=== PATIENT | male | born 1995 | race Caucasian/White ===

== ENCOUNTER 2020-01-10 18:13 | Emergency (ER) | payer OTHER, SELFPAY ==
[2020-01-10 18:17] VITALS: BP 124/85; PULSE 97; RESP 18; TEMP 36.1; O2SAT 100
[2020-01-10 18:40] VITALS: BP 135/79; PULSE 85; RESP 20; O2SAT 79
--- NOTE | 2020-01-10 18:52 | ED.UPPEXIN ---
HPI - Extremity Injury (Upper) General Chief Complaint: Extremity Injury, Upper Stated Complaint: right arm chain saw laceration Time Seen by Provider: 01/10/20 18:32 History of Present Illness HPI narrative: He was cutting down a tree when the saw jumped and he he cut his right forearm. He has severe pain. Worse with making a fist or extending the wrist. Moderate bleeding, controlled with dressing. Movement intact. No numbness. Related Data Allergies Allergy/AdvReac Type Severity Reaction Status Date / Time tramadol Allergy Intermediate Muscle Verified 01/10/20 18:40 Spasms Review of Systems Review of Systems: All systems reviewed & are unremarkable except as noted in HPI and below Constitutional: Constitutional: Denies fever(s) Cardiovascular: Cardiovascular: Denies chest pain Hematologic/Lymphatic: Hematologic/Lymphatic: Denies easy bleeding and Denies easy bruising PMFSH Social History Social History (Updated 01/18/20 @ 17:52 by Ilya Davies MD) Smoking status: Current every day smoker Alcohol intake: former Gender identity (if verbalized by the patient): Male Exam Const: General: healthy appearing, no acute distress and alert Orientation/consciousness: patient oriented x3 HENMT: Head: normal to inspection Resp: Effort & Inspection: normal respiratory effort Auscultation: clear to auscultation bilaterally Cardio: Rate: regular rate Rhythm: regular rhythm Other: 2 + right radial pulse. Brisk capillary refill in all digits Skin: Wounds: wounds noted (8 cm lac to right forearm w/ partial laceration of multiple extensor muscle) Neuro: General: patient oriented x3, no focal motor deficits and CN's II-XI intact bilaterally Speech: normal speech Other: Motor and sensory fully intact to Right hand and forearm Course Vital Signs Vital signs: Vital Signs Temperature 36.1 C L 01/10/20 18:17 Pulse Rate 97 01/10/20 18:17 Respiratory Rate 18 01/10/20 18:17 Blood Pressure 124/85 01/10/20 18:17 Pulse Oximetry 100 01/10/20 18:17 Temperature 36.9 C 01/10/20 20:21 Pulse Rate 84 01/10/20 20:21 Respiratory Rate 18 01/10/20 20:21 Blood Pressure 121/86 01/10/20 20:21 Pulse Oximetry 98 01/10/20 20:21 Procedures Laceration Laceration 1: Site: upper extremity Side (If applicable): right (forearm) Local Anesthetic: lidocaine 1% and with epi Amount of anesthesia used (mL): 25 Pre-repair: wound explored and irrigated extensively ====== Skin Level ====== Skin layer closed with: nylon Size (cm): 4-0 Number of sutures: 11 Technique: simple, interrupted ====== Subcutaneous Layer ====== Subcutaneous layer closed with: vicryl Size: 4-0 Number of sutures: 7 Technique: simple, interrupted ====== Muscle Layer ====== Muscle layer closed with: vicryl Size: 4-0 Number of sutures: 4 Technique: other (figure 8) ====== Tendon Layer ====== MDM - Extremity Injury (Upper) MDM Narrative Medical decision making narrative: Laceration repaired. Neuro intact before and after procedure. Advised to get and use wrist splint while not sleeping. He expressed understanding. Discharge Plan Discharge Clinical Impression: Contact with chainsaw as cause of accidental injury, Laceration of forearm Patient Disposition: Home, Self-Care Condition: Stable Instructions: Antibiotic Form, Laceration (ED) Prescriptions: New cephalexin [Keflex] 500 mg capsule 500 mg PO Q12H Qty: 10 RF: 0 hydrocodone-acetaminophen [[place]] 5-325 mg tablet 1 tablet PO Q6H PRN (Reason: pain) Qty: 10 RF: 0 Follow-up/Referrals: PHYSICIAN,SPECIAL DELIVERY MESSENGER [Primary Care Provider] - Discharge Date/Time: 01/10/20 20:22
[2020-01-10] MEDS: CEPHALEXIN 500 MG CAPSULE PO (18:55)
[2020-01-10 20:21] VITALS: BP 121/86; PULSE 84; RESP 18; TEMP 36.9; O2SAT 98
== END 2020-01-10 20:22 | disposition home or self-care (01) ==
PROVIDERS: Emergency Provider Emergency Medicine
DX: S56.521A Laceration of other extensor muscle, fascia and tendon at forearm level, right arm, initial encounter (principal); S51.811A Laceration without foreign body of right forearm, initial encounter; W29.3XXA Contact with powered garden and outdoor hand tools and machinery, initial encounter; F17.200 Nicotine dependence, unspecified, uncomplicated
CPT/HCPCS: 12032; 13121; 13122; 99283; A9270

== ENCOUNTER 2020-11-07 03:26 | Emergency (ER) | payer OTHER, SELFPAY ==
--- NOTE | ~2020-11-07 | XR_ITS ---
EXAMINATION: XR chest 2V 11/07/2020 04:03 INDICATION: Shortness of breath PROCEDURE: PA and lateral views of the chest COMPARISON: 02/13/2018 FINDINGS: The lungs are clear. The cardiomediastinal silhouette is within normal limits. There are no pleural effusions. There is no pneumothorax suspected. IMPRESSION: 1: NO ACUTE CARDIOPULMONARY DISEASE. Reviewed, dictated and finalized at location A.
--- NOTE | 2020-11-07 03:33 | PC.NURSE ---
After placing a wrist band on patient, he stated I'll be right back and walked outside.
--- NOTE | 2020-11-07 03:44 | ED.SOB ---
HPI - SOB/Dyspnea General Chief Complaint: Shortness of Breath/Dyspnea Stated Complaint: SOB, worse with exertion Time Seen by Provider: 11/07/20 03:43 History of Present Illness HPI Narrative: He reports that for darby time he has frequent SOB. He says that at times it is so severe that he loses consciousness. He tells us that he is a [facility]ateint of [facility] where he has been receiving radiation therapy for a noncancerous lung mass. Upon contacting [facility] I was informed that they have no record of him every being a patient there. He was seen here a few months ago for pneumonia. Related Data Allergies Allergy/AdvReac Type Severity Reaction Status Date / Time tramadol Allergy Intermediate Muscle Verified 01/10/20 18:40 Spasms Review of Systems Review of Systems: All systems reviewed & are unremarkable except as noted in HPI and below [facility] Social History Social History (Updated 01/18/20 @ 17:52 by Ilya Davies MD) Smoking status: Current every day smoker Alcohol intake: former Gender identity (if verbalized by the patient): Male Exam Const: General: healthy appearing, no acute distress and alert Orientation/consciousness: patient oriented x3 HENMT: Head: normal to inspection Neck: Neck: normal visual inspection and no lymphadenopathy Chest: Chest palpation & inspection: no tenderness Resp: Effort & Inspection: normal respiratory effort Auscultation: clear to auscultation bilaterally, no rales, no rhonchi and no wheezes Cardio: Jugular venous distension: no JVD Rate: regular rate Rhythm: regular rhythm Heart sounds: no murmurs GI: Inspection: non-distended GI Palp: Yes Soft to palpation and No Tenderness to palpation present (GI) Skin: General skin exam: normal color Neuro: General: patient oriented x3 and moves all extremities Speech: normal speech Extrem: General: no edema Psych: Appearance: well kempt Affect: normal affect Course Vital Signs Vital signs: Vital Signs Temperature 36.8 C 11/07/20 04:06 Pulse Rate 95 11/07/20 04:06 Respiratory Rate 24 H 11/07/20 04:06 Blood Pressure 126/79 11/07/20 04:06 Pulse Oximetry 100 11/07/20 04:06 Temperature 36.7 C 11/07/20 06:52 Pulse Rate 84 11/07/20 06:52 Respiratory Rate 18 11/07/20 06:52 Blood Pressure 114/64 11/07/20 06:52 Pulse Oximetry 97 11/07/20 06:52 MDM - SOB/Dyspnea Differential Diagnosis Differential diagnosis: Likely community acquired pneumonia and other Medical Records Attestation: I reviewed the patient's medical records. Lab Data Attestation: I reviewed the patient's lab results. Result diagrams: 11/07/20 04:16 11/07/20 04:16 Labs: Lab Results 11/07/20 11/07/20 Range/Units 04:16 04:16 WBC 10.8 H (4.5-10.0) K/mm3 RBC 4.91 (4.6-6.20) M/mm3 Hgb 14.6 (14.0-18.0) g/dL Hct 44.3 (42.0-52.0) % MCV 90.2 (80-100) fl MCH 29.7 (26-34) pg MCHC 33.0 (32-36) g/dl RDW 13.3 (11.5-14.5) % Plt Count 264 (150-375) k/mm3 MPV 9.6 (7.4-10.4) fl Immature Gran % (Auto) 0.3 (0-0.5) % Neut % (Auto) 52.5 (45.5-73.1) % Lymph % (Auto) 35.3 (18.3-44.2) % [place] % (Auto) 8.7 H (2.6-8.5) % Eos % (Auto) 2.7 (0-4.4) % Baso % (Auto) 0.5 (0.2-1.2) % Lymph # (Auto) 3.80 H (0.9-3.2) K/mm3 [place] # (Auto) 0.9 H (0.1-0.6) K/mm3 Eos # (Auto) 0.3 (0-0.3) K/mm3 Baso # (Auto) 0.1 (0.0-0.1) K/mm3 Abs Immat Gran (auto) 0.03 (0.00-0.031) K/mm3 Absolute Neuts (auto) 5.7 (1.3-6.7) K/mm3 Absolute Nucleated RBC 0.0 (0.0-0.012) K/mm3 Nucleated RBC % 0.0 (0.0-0.2) % Sodium 141 (137-145) mmol/L Potassium 4.1 (3.4-5.0) mmol/L Chloride 104 (98-107) mmol/L Carbon Dioxide 30 (22-30) mmol/L Anion Gap 7 L (8-16) mmol/L BUN 16 (9-20) mg/dL Creatinine 1.20 (0.7-1.3) mg/dL Estim Creat Clear Calc 93 ml/min Estimated GFR > 60 (59 - ) Glucose 86 (75-110) mg/dL Calcium
--- NOTE | 2020-11-07 03:55 | ECG_ITS ---
Measurements Intervals [place] Rate: 99 P: 68 ME: 121 QRS: 80 QRSD: 90 T: 51 QT: 330 QTc: 423 Interpretive Statements SINUS RHYTHM ST ELEVATION IN DIFFUSE LEADS, PROBABLY EARLY REPOLARIZATION BORDERLINE ECG Electronically Signed On 11-07-2020 9:45:54 CDT by Figueroa Simon D.O.
--- NOTE | 2020-11-07 03:55 | PC.NURSE ---
Pt presents to ED with complaints of sob with near syncopal episodes. Pt states approx one month ago he was diagnosed with a non-cancerous mass to his left lung. Pt states for the past several weeks he has been have apneic episodes while sleeping and becoming sob with near syncopal episodes. Pt states he has pain with every breath . 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 Breathing noted to be even and unlabored with O2 saturation of 100% on room air. EDMD presented to bedside. Vitals are stable and pt in no obvious distress. Call button and personal items within reach. Pt advised of npo status until test results posts, advised to press call button for assistance and voices his understanding.
--- NOTE | 2020-11-07 03:59 | PC.NURSE ---
Pt to radiology via cart.
--- NOTE | 2020-11-07 04:04 | PC.NURSE ---
Pt returned from radiology.
[2020-11-07 04:06] VITALS: BP 126/79; PULSE 95; RESP 24; TEMP 36.8; O2SAT 100
[2020-11-07 04:09] VITALS: O2SAT 100
[2020-11-07 04:29] LABS: Basophils Absolute Auto 0.1 K/mm3 (0.0-0.1); Basophils Percent Auto 0.5 % (0.2-1.2); Eosinophils Absolute Auto 0.3 K/mm3 (0-0.3); Eosinophils Percent Auto 2.7 % (0-4.4); Hematocrit 44.3 % (42.0-52.0); Hemoglobin 14.6 g/dL (14.0-18.0); Immature Granulocyte Absolute 0.03 K/mm3 (0.00-0.031); Immature Granulocyte Percent A 0.3 % (0-0.5); Lymphocytes Percent Auto 35.3 % (18.3-44.2); Mean Corpuscular Hemoglobin 29.7 pg (26-34); Mean Corpuscular Volume 90.2 fl (80-100); Mean Platelet Volume 9.6 fl (7.4-10.4); Monocytes Absolute Auto 0.9 K/mm3 (0.1-0.6); Monocytes Percent Auto 8.7 % (2.6-8.5); Neutrophils Absolute Auto 5.7 K/mm3 (1.3-6.7); Neutrophils Percent Auto 52.5 % (45.5-73.1); Platelet Count Result 264 k/mm3 (150-375); Red Blood Count 4.91 M/mm3 (4.6-6.20); Red Cell Distribution Width 13.3 % (11.5-14.5); White Blood Count 10.8 K/mm3 (4.5-10.0)
[2020-11-07 04:33] LABS: Anion Gap 7 mmol/L (8-16); Blood Urea Nitrogen 16 mg/dL (9-20); Calcium 9.6 mg/dL (8.4-10.2); Carbon Dioxide 30 mmol/L (22-30); Chloride 104 mmol/L (98-107); Estimated CRCL calculation 93 ml/min; Estimated Glomerular Filt Rate > 60; Glucose 86 mg/dL (75-110); Potassium 4.1 mmol/L (3.4-5.0); Sodium 141 mmol/L (137-145)
--- NOTE | 2020-11-07 05:17 | PC.NURSE ---
Pt resting on cart in its lowest position with stable vitals and in no obvious distress. Girlfriend is present at bedside. Pt advised to press call button for assistance. Advised to press call buttons for assistance.
[2020-11-07 05:18] VITALS: BP 116/68; PULSE 83; RESP 20; O2SAT 98
[2020-11-07] MEDS: ALBUTEROL SULFATE NEB 2.5 MG/0.5 ML INH 5 MG INHALATION (05:35)
[2020-11-07 06:38] VITALS: BP 114/64; PULSE 84; RESP 18; TEMP 36.7; O2SAT 97
--- NOTE | 2020-11-07 06:44 | PC.NURSE ---
Pt ambulated in [place] without difficulty. Pt in no obvious distress and voices no complaints. O2 saturation remained >97%. Will notify EDMD.
[2020-11-07 06:52] VITALS: BP 114/64; PULSE 84; RESP 18; TEMP 36.7; O2SAT 97
== END 2020-11-07 06:53 | disposition home or self-care (01) ==
PROVIDERS: Emergency Provider Emergency Medicine
DX: R06.02 Shortness of breath (principal); F17.210 Nicotine dependence, cigarettes, uncomplicated
CPT/HCPCS: 36415; 71046; 80048; 85025; 93005; 99284